=== PATIENT | male | born 1980 | race Caucasian/White ===

== ENCOUNTER 2017-04-10 14:24 | Emergency (ER) | payer BC, OTHER ==
--- NOTE | 2017-04-10 15:58 | UC ---
Respiratory Complaint HPI - HPI Summary HPI Summary: 37 YEAR OLD MALE PRESENTS WITH COMPLAINS OF COUGH AND LEFT SIDED BACK PAIN. - History of Current Complaint Stated Complaint: COUGH Time Seen by Provider: 04/10/17 15:58 Hx Obtained From: Patient Onset/Duration: Sudden Onset Severity Initially: Moderate Severity Currently: Moderate Aggravating Factors: Exertion, Deep Breaths Associated Signs And Symptoms: Positive: Wheezing - Allergies/Home Medications Allergies/Adverse Reactions: Allergies Allergy/AdvReac Type Severity Reaction Status Date / Time Penicillins Allergy Hives Verified 04/10/17 16:15 Sulfa Antibiotics Allergy Swelling Verified 04/10/17 16:15 Of Face,Lips,& Throat Home Medications: Home Medications Dextromethorphan HBr [Cough Relief] 15 mg PO ONCE PRN 04/10/17 [History Confirmed 04/10/17] Guaifenesin [Guaifenesin ER] 600 mg PO ONCE PRN 04/10/17 [History Confirmed ] Multiple Vitamin [Multi Vitamin] 1 tab PO DAILY 04/10/17 [History Confirmed ] PMH/Surg Hx/FS Hx/Imm Hx Previously Healthy: Yes - Surgical History Surgical History: None - Family History Known Family History: Positive: None - Social History Alcohol Use: None Review of Systems Constitutional: Negative Skin: Negative Eyes: Negative ENT: Nasal Discharge, Sinus Congestion, Sinus Pain/Tenderness Respiratory: Cough Cardiovascular: Negative Gastrointestinal: Negative Genitourinary: Negative Motor: Negative Neurovascular: Negative Musculoskeletal: Negative Neurological: Negative Psychological: Negative All Other Systems Reviewed And Are Negative: Yes Physical Exam Triage Information Reviewed: Yes Vital Signs Reviewed: Yes Eye Exam: Normal ENT: Positive: Pharyngeal erythema, Nasal congestion, Nasal drainage Dental Exam: Normal Neck exam: Normal Neck: Positive: 1 Respiratory Exam: Normal Cardiovascular Exam: Normal Abdominal Exam: Normal Musculoskeletal Exam: Normal Neurological Exam: Normal Psychological Exam: Normal Skin Exam: Normal Respiratory Course/Dx - Differential Dx/Diagnosis Provider Diagnoses: COUGH. LEFT UPPER BACK PAIN Discharge - Discharge Plan Condition: Stable Disposition: HOME Prescriptions: Albuterol HFA INHALER* [Ventolin HFA Inhaler*] 1 puff INH Q6H PRN #1 mdi PRN Reason: Wheezing Azithromyxin LUCAS (NF) [Z-Lucas (Zithromax) 250 mg tabs #6] 2 tab PO .TODAY, THEN 1 DAILY #6 tab Guaifenesin-Codeine [Cheratussin AC] 1 syp PO Q8H PRN #120 ml MDD 15 ml PRN Reason: Cough LoraTADine TAB(NF) [Claritin 10 MG TAB(NF)] 10 mg PO DAILY #30 tab Patient Education Materials: Acute Bronchitis (ED) Referrals: Jeremy Potter DO [Primary Care Provider] -
== END 2017-04-10 16:32 | disposition home or self-care (01) ==
LOC: UCCORT 14:24
DX: R05 Cough (principal); M54.6 Pain in thoracic spine
CPT/HCPCS: 99202; G0463

== ENCOUNTER 2017-05-05 09:55 | Emergency (ER) | payer OTHER ==
--- NOTE | 2017-05-05 11:38 | RAD ---
HISTORY: Shortness of breath, wheezing, dyspnea COMPARISONS: None VIEWS: 5: Frontal dual-energy and lateral views of the chest. FINDINGS: CARDIOMEDIASTINAL SILHOUETTE: The cardiomediastinal silhouette is normal. ALBERTO: The alberto are normal. PLEURA: The costophrenic angles are sharp. No pleural abnormalities are noted. LUNG PARENCHYMA: The lungs are clear. ABDOMEN: The upper abdomen is clear. There is no subphrenic gas. BONES AND SOFT TISSUES: No bone or soft tissue abnormalities are noted. OTHER: None. IMPRESSION: NO ACTIVE CARDIOPULMONARY DISEASE.
--- NOTE | 2017-05-05 11:42 | UC ---
Respiratory Complaint HPI - HPI Summary HPI Summary: Pt c/o cough and wheezing X 2 weeks. Was treated last week with Zpac and albuterol inhaler and loratadine.Pt works at a assisted - History of Current Complaint Hx Obtained From: Patient Onset/Duration: Gradual Onset, Lasting Weeks, Still Present Timing: Intermittent Episodes Severity Initially: Mild Severity Currently: Moderate Character: Cough: Nonproductive Aggravating Factors: Exertion, Deep Breaths, Recumbent Position Alleviating Factors: Nothing Associated Signs And Symptoms: Positive: Wheezing, URI, Nasal Congestion - Risk Factors Pulmonary Embolism Risk Factors: Negative Cardiac Risk Factors: Negative Pseudomonas Risk Factors: Negative Tuberculosis Risk Factors: Negative <Yu Rosales NP - Last Filed: 05/05/17 12:15> <Halie Lopez - Last Filed: 05/05/17 12:22> - History of Current Complaint Chief Complaint: UCRespiratory Stated Complaint: UPPER RESP RECHECK Time Seen by Provider: 05/05/17 10:50 - Allergies/Home Medications Allergies/Adverse Reactions: Allergies Allergy/AdvReac Type Severity Reaction Status Date / Time Penicillins Allergy Hives Verified 05/05/17 10:09 Sulfa Antibiotics Allergy Swelling Verified 05/05/17 10:09 Of Face,Lips,& Throat PMH/Surg Hx/FS Hx/Imm Hx Previously Healthy: Yes - Surgical History Surgical History: None Surgery Procedure, Year, and Place: B/L EAR TUBES - Family History Known Family History: Positive: Cardiac Disease - Social History Occupation: Employed Full-time Lives: With Family Alcohol Use: Rare Substance Use Type: None Smoking Status (MU): Former Smoker Have You Smoked in the Last Year: No When Did the Patient Quit Smoking/Using Tobacco: 10+ YRS <Yu Rosales NP - Last Filed: 05/05/17 12:15> Review of Systems Constitutional: Chills, Fatigue Skin: Negative Eyes: Negative ENT: Sinus Congestion Respiratory: Shortness Of Breath, Cough Cardiovascular: Negative Gastrointestinal: Negative Genitourinary: Negative Motor: Negative Neurovascular: Negative Musculoskeletal: Negative Neurological: Negative Psychological: Negative Is Patient Immunocompromised?: No All Other Systems Reviewed And Are Negative: Yes <Yu Rosales NP - Last Filed: 05/05/17 12:15> Physical Exam Triage Information Reviewed: Yes Appearance: Well-Appearing Vital Signs: Initial Vital Signs Temp 98.2 F 05/05/17 10:04 Pulse 64 05/05/17 10:04 Resp 18 05/05/17 10:04 BP 125/81 05/05/17 10:04 Pulse Ox 98 05/05/17 10:04 Vital Signs Reviewed: Yes Eye Exam: Normal ENT Exam: Other ENT: Positive: Nasal congestion Dental Exam: Normal Neck exam: Normal Respiratory Exam: Other Respiratory: Positive: Wheezing Cardiovascular Exam: Normal Musculoskeletal Exam: Normal Neurological Exam: Normal Psychological Exam: Normal Skin Exam: Normal <Yu Rosales NP - Last Filed: 05/05/17 12:15> Vital Signs: Initial Vital Signs Temp 98.2 F 05/05/17 10:04 Pulse 64 05/05/17 10:04 Resp 18 05/05/17 10:04 BP 125/81 05/05/17 10:04 Pulse Ox 98 05/05/17 10:04 <Halie Lopez - Last Filed: 05/05/17 12:22> UC Diagnostic Evaluation - Laboratory O2 Sat by Pulse Oximetry: 98 <Yu Rosales NP - Last Filed: 05/05/17 12:15> Respiratory Course/Dx - Differential Dx/Diagnosis Differential Diagnosis/HQI/PQRI: Bronchitis, Pulmonary Embolism, Other - pneumonia Provider Diagnoses: Bronchitis <Yu Rosales NP - Last Filed: 05/05/17 12:15> Discharge <Yu Rosales NP - Last Filed: 05/05/17 12:15> <Halie Lopez - Last Filed: 05/05/17 12:22> - Discharge Plan Condition: Stable Disposition: HOME Prescriptions: DOXYcycline CAP(*) [DOXYcycline 100MG CAP(*)] 100 mg PO Q12H #14 cap methylPREDNISolone TAB* [Medrol TAB*] 4 - 8 mg PO .SEE LUCAS #1 lucas Patient Education Materials: Acute Bronchitis (ED), Bronchospasm (ED) Referrals: No Primary Care Phys,NOPCP [Primary Care Provider] - If Needed Attestation Statement User Type: Provider - I was available for consult. This patient was seen by the JONAH. The patient was not presented to, seen by, or examined by me. -Corky <Halie Lopez - Last Filed: 05/05/17 12:22>
== END 2017-05-05 11:52 | disposition home or self-care (01) ==
LOC: UCCORT 09:55
DX: J40 Bronchitis, not specified as acute or chronic (principal); Z88.0 Allergy status to penicillin; Z88.2 Allergy status to sulfonamides; Z87.891 Personal history of nicotine dependence
CPT/HCPCS: 71046; 99212; G0463

== ENCOUNTER 2017-07-01 19:08 | Emergency (ER) | payer OTHER ==
[2017-07-01 20:02] VITALS: BP 126/81
--- NOTE | 2017-07-01 20:06 | UC ---
Respiratory Complaint HPI - HPI Summary HPI Summary: 37 year old male with cough. seen here 05/05/17, for URI, Treated with Doxy and prednisone, continues to have cough. Works at [employer]. Here in March and Apr. Had Z pack then after that the other meds. Still with some cough. No fever. No CP. No OSPINA. Xray in Apr shows NAD. 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 [ End ] - History of Current Complaint Chief Complaint: UCRespiratory Stated Complaint: RECHECK COUGH Time Seen by Provider: 07/01/17 19:56 Hx Obtained From: Patient Onset/Duration: Gradual Onset Timing: Constant Pain Intensity: 0 Character: Cough: Nonproductive Aggravating Factors: Exertion Alleviating Factors: Nothing - Allergies/Home Medications Allergies/Adverse Reactions: Allergies Allergy/AdvReac Type Severity Reaction Status Date / Time Penicillins Allergy Hives Verified 07/01/17 20:04 sulfabenzamide Allergy Swelling Verified 07/01/17 20:04 Of Face,Lips,& Throat PMH/Surg Hx/FS Hx/Imm Hx Previously Healthy: Yes - Surgical History Surgical History: None Surgery Procedure, Year, and Place: B/L EAR TUBES - Family History Known Family History: Positive: None, Cardiac Disease - Social History Occupation: Employed Full-time Lives: With Family Alcohol Use: Rare Substance Use Type: None Smoking Status (MU): Former Smoker Have You Smoked in the Last Year: No When Did the Patient Quit Smoking/Using Tobacco: 10+ YRS Review of Systems Constitutional: Fatigue Respiratory: Cough Is Patient Immunocompromised?: No All Other Systems Reviewed And Are Negative: Yes Physical Exam Triage Information Reviewed: Yes Appearance: Well-Appearing, No Pain Distress, Well-Nourished Vital Signs: Initial Vital Signs Temp 98.2 F 07/01/17 19:56 Pulse 76 07/01/17 19:56 Resp 16 07/01/17 19:56 BP 126/81 07/01/17 19:56 Pulse Ox 99 07/01/17 19:56 Vital Signs Reviewed: Yes Eye Exam: Normal ENT Exam: Normal Dental Exam: Normal Neck exam: Normal Neck: Positive: 1 Respiratory Exam: Normal Cardiovascular Exam: Normal Musculoskeletal Exam: Normal Neurological Exam: Normal Psychological Exam: Normal Skin Exam: Normal UC Diagnostic Evaluation - Laboratory O2 Sat by Pulse Oximetry: 99 Respiratory Course/Dx - Course Course Of Treatment: with the complaint of cough that persisted / worsened after finishing the doxy will offer cough med, and if Sx persist or worsen , or develop fever then start doxy. he is aware and agree to plan. he is also worried as he has been exposed to up to 6 people with flu at work over the past month or 2 . he needs to go back to PCP as he did not the past 2 visit -- he will call dr urena office to f/u -- he may need PFT's or Pulm referral / further imaging - Differential Dx/Diagnosis Differential Diagnosis/HQI/PQRI: Asthma, Bronchitis, Lower Resp Infection Provider Diagnoses: URI Discharge - Discharge Plan Condition: Good Disposition: HOME Prescriptions: Benzonatate CAP* [Tessalon 100 MG CAP*] 100 mg PO TID #20 cap Doxycycline Monohydrate 100 mg PO BID #20 cap Patient Education Materials: Upper Respiratory Infection (ED) Referrals: No Primary Care Phys,NOPCP [Primary Care Provider] - 4 Days (Please call Dr Urena's office for follow up )
== END 2017-07-01 20:34 | disposition home or self-care (01) ==
LOC: UCCORT 19:08
DX: J06.9 Acute upper respiratory infection, unspecified (principal); Z88.0 Allergy status to penicillin; Z88.8 Allergy status to other drugs, medicaments and biological substances; Z87.891 Personal history of nicotine dependence
CPT/HCPCS: 99212; G0463

== ENCOUNTER 2019-06-16 12:18 | Emergency (ER) | payer OTHER ==
[2019-06-16 12:53] VITALS: BP 147/87
--- NOTE | 2019-06-16 13:30 | UC ---
Ear Complaint HPI - HPI Summary HPI Summary: Pt presents with c/o left ear pain, and slight loss of hearing, with feeling of crackling and popping in left ear. Pt has hx cerumen impaction. - History of Current Complaint Chief Complaint: UCEar Stated Complaint: LEFT EAR Time Seen by Provider: 06/16/19 13:03 Hx Obtained From: Patient Onset/Duration: Gradual Onset, Lasting Days, Still Present Severity Initially: Mild Severity Currently: Mild Pain Intensity: 0 Associated Signs/Symptoms: Positive: Hearing Loss - Allergies/Home Medications Allergies/Adverse Reactions: Allergies Allergy/AdvReac Type Severity Reaction Status Date / Time Sulfa (Sulfonamide Allergy Unknown tightness Verified 06/16/19 12:45 Antibiotics) of throat Penicillins Allergy Hives Verified 06/16/19 12:43 Home Medications: Home Medications Multiple Vitamin [Multi Vitamin] 1 tab PO DAILY 04/10/17 [History Confirmed ] PMH/Surg Hx/FS Hx/Imm Hx Previously Healthy: Yes - Surgical History Surgical History: None Surgery Procedure, Year, and Place: B/L EAR TUBES - Family History Known Family History: Positive: Cardiac Disease - Social History Occupation: Employed Full-time Lives: With Family Alcohol Use: Rare Substance Use Type: None Smoking Status (MU): Former Smoker Have You Smoked in the Last Year: No When Did the Patient Quit Smoking/Using Tobacco: 10+ YRS Review of Systems All Other Systems Reviewed And Are Negative: Yes Constitutional: Positive: Negative Skin: Positive: Negative Eyes: Positive: Negative ENT: Positive: Ear Ache, Other - hearing loss left ear Respiratory: Positive: Negative Cardiovascular: Positive: Negative Gastrointestinal: Positive: Negative Genitourinary: Positive: Negative Motor: Positive: Negative Neurovascular: Positive: Negative Musculoskeletal: Positive: Negative Neurological/Mental Status: Positive: Negative Psychological: Positive: Negative Is Patient Immunocompromised?: No Physical Exam Triage Information Reviewed: Yes Appearance: Well-Appearing Vital Signs: Initial Vital Signs Temp 98 F 06/16/19 12:47 Pulse 110 06/16/19 12:47 Resp 20 06/16/19 12:47 BP 147/87 06/16/19 12:47 Pulse Ox 98 06/16/19 12:47 Vital Signs Reviewed: Yes Eye Exam: Normal ENT: Positive: Other - cerumen left ear Dental Exam: Normal Neck exam: Normal Respiratory Exam: Normal Cardiovascular Exam: Normal Musculoskeletal Exam: Normal Neurological Exam: Normal Psychological Exam: Normal Skin Exam: Normal Ear Complaint Course/Dx - Differential Dx/Diagnosis Differential Diagnosis/HQI/PQRI: Cerumen Impaction, Otitis Externa, Otitis Media Provider Diagnosis: Impacted cerumen of left ear Discharge ED - Sign-Out/Discharge Documenting (check all that apply): Patient Departure All imaging exams completed and their final reports reviewed: No Studies - Discharge Plan Condition: Stable Disposition: HOME Patient Education Materials: Cerumen Impaction (ED) Referrals: [facility] [place] [facility] [Outside] - If Needed No Primary Care Phys,NOPCP [Primary Care Provider] - - Billing Disposition and Condition Condition: STABLE Disposition: Home
== END 2019-06-16 14:20 | disposition home or self-care (01) ==
LOC: UCCORT 12:18
DX: H61.22 Impacted cerumen, left ear (principal); H92.02 Otalgia, left ear; Z87.891 Personal history of nicotine dependence; Z88.2 Allergy status to sulfonamides; Z88.0 Allergy status to penicillin
CPT/HCPCS: 99212; G0463